=== PATIENT | female | born 1955 | race American Indian/Alaskan Native ===

== ENCOUNTER 2017-04-18 13:19 | Outpatient (CLI) | payer OTHER ==
--- NOTE | 2017-04-18 15:19 | Mammography Report ---
BILATERAL MAMMOGRAM with CAD: HISTORY: Cancer screening. Comparison study is dated December. FINDINGS: The breast tissue is heterogeneously dense, which could obscure detection of small masses (approximately 50%-75% glandular). No mass, distortion, suspicious calcification, or skin change is seen. IMPRESSION: Negative mammogram. There is no mammographic evidence of malignancy. RECOMMENDATION: Follow-up per ACS guidelines. BI-RADS CATEGORY: 1 = Negative ACR BI-RADS MAMMOGRAPHIC CODES: 0 = Needs additional imaging evaluation; 1 = Negative; 2 = Benign; 3 = Probably benign; 4 = Suspicious; 5 = Malignant; 6 = Known biopsy-proven malignancy COMMENT: 1. Dense breast tissue, i.e., adenosis, fibrocystic changes, etc., may obscure an underlying neoplasm. 2. Approximately 10% of cancers are not detected with mammography. 3. A negative mammography report should not delay biopsy if a clinically suspicious mass is present. COMMENT: Patient follow-up letters are generated in [employer].
== END 2017-04-18 13:20 | disposition home or self-care (01) ==
LOC: MAMMO 13:19
PROVIDERS: ATTEND Family Medicine
DX: Z12.31 Encounter for screening mammogram for malignant neoplasm of breast (principal); I10 Essential (primary) hypertension
CPT/HCPCS: 77067; G0202

== ENCOUNTER 2021-09-28 11:26 | Outpatient (CLI) | payer OTHER ==
--- NOTE | 2021-09-28 16:24 | Mammography Report ---
DIGITAL SCREENING MAMMOGRAM WITH CAD, 09/28/2021 CLINICAL INFORMATION / INDICATION: Routine screening mammography. TECHNIQUE: Digital bilateral 2D mammography was obtained in the craniocaudal and mediolateral obliqu e projections. This examination was interpreted with the benefit of Computer-Aided Detection analysis . COMPARISON: 04/18/2017 FINDINGS: Breast Density: The breasts are heterogeneously dense, which may obscure small masses. No dominant mass, suspicious calcifications, or architectural distortion in either breast. No interval change. IMPRESSION: No mammographic evidence of malignancy. Follow up recommendation: Routine yearly BI-RADS Category 1: Negative. A "normal" or negative report should not discourage follow up or biopsy of a clinically significant f inding. A written summary of these findings will be mailed to the patient. The patient will be entered into a mammography reporting system which will generate a reminder letter for the patient's next appointmen t at the appropriate interval. The [employer] recommends yearly mammograms starting at age 40 and continuing as l emigdio as a woman is in good health. Breast MRI is recommended for women with an approximate 20-25% or greater lifetime risk of breast cancer, including women with a strong family history of breast or ova rainer cancer or who have been treated for Hodgkin's disease. Signer Name: Soumya Schmidt MD Signed: 09/28/2021 4:20 PM Workstation Name: [id number]
== END 2021-09-28 11:27 | disposition home or self-care (01) ==
LOC: MAMMO 11:26
PROVIDERS: ATTEND Family Medicine
DX: Z12.31 Encounter for screening mammogram for malignant neoplasm of breast (principal)
CPT/HCPCS: 77067

== ENCOUNTER 2021-10-25 07:49 | Day surgery (SDC) | payer MEDICARE, OTHER ==
[2021-10-17 12:39] LABS: Hematocrit 35.9 % (30.3-42.9); Hemoglobin 11.9 gm/dl (10.1-14.3); Mean Corpuscular HGB Conc 33 % (30-34); Mean Corpuscular Volume 89 fl (79-97); Platelet Count 218 K/mm3 (140-440); Red Blood Count 4.05 M/mm3 (3.65-5.03); Red Cell Distribution Width 13.5 % (13.2-15.2)
[~2021-10-25 07:49] MED LIST: LACTATED RINGERS 1,000 ML IV SCH
[2021-10-25] MEDS ORDERED: BACTERIOSTATIC SODIUM CHLORIDE 0.9% 30 ML VIAL INFILTRATI ONE (08:07)
--- NOTE | 2021-10-25 08:42 | Anesthesia Day of Surgery ---
Anesthesia Day of Surgery - Day of Surgery Patient Examined: Yes Patient H&P Reviewed: Yes Patient is NPO: Yes
--- NOTE | 2021-10-25 08:44 | Anesthesia Consultation ---
Anesthesia Consult and Med Hx Date of service: 10/25/21 - Airway Anesthetic Teeth Evaluation: Chipped ROM Head & Neck: Adequate Mental/Hyoid Distance: Adequate Mallampati Class: Class II Intubation Access Assessment: Good - Pre-Operative Health Status ASA Pre-Surgery Classification: ASA3 Proposed Anesthetic Plan: General - Pulmonary Hx Smoking: No Hx Respiratory Symptoms: No (+2FS) Hx Sleep Apnea: No (SNORES) - Cardiovascular System Hx Hypertension: Yes Hx Heart Attack/AMI: No Hx Heart Murmur: Yes - Central Nervous System CVA: Yes (TIA three years ago) Hx Back Pain: No Hx Psychiatric Problems: No - Gastrointestinal Hx Gastroesophageal Reflux Disease: Yes (occ) - Endocrine Hx Renal Disease: No (SPOT ON RT KIDNEY SINCE 2011-BEING WATCHED BY MORNING SHOW [employer]ER Q6 MONTHS) Hx End Stage Renal Disease: No Hx Liver Disease: Yes ([BENIGN]MASS REMOVED FROM LIVER) Hx Insulin Dependent Diabetes: No - Hematic Hx Anemia: Yes Hx Sickle Cell Disease: Yes (TRAIT) - Other Systems Hx Alcohol Use: No Hx Substance Use: No Hx Cancer: No Hx Obesity: No - Additional Comments Anesthesia Medical History Comments: Has Left shoulder RTC pain
[2021-10-25] MEDS ORDERED: HYDROmorphone 1 MG/1 ML INJ IV PRN ×2 (09:00)
[2021-10-25] MEDS ORDERED: MIDAZOLAM 2 MG/2 ML INJ IV NR (09:00)
[2021-10-25] MEDS ORDERED: ONDANSETRON 4 MG/2 ML INJ IV PRN (09:00)
[2021-10-25] MEDS ORDERED: LIDOCAINE MPF (2%) 20 MG/1 ML VIAL 5 ML ONE (09:10)
[2021-10-25] MEDS ORDERED: propofoL 200 MG/20 ML VIAL IV ONE (09:10)
[2021-10-25] MEDS ORDERED: HYDROmorphone 1 MG/1 ML INJ ONE (09:11)
[2021-10-25] MEDS ORDERED: SILVER NITRATE APPLICATOR 1 EA TP ONE (09:26)
--- NOTE | 2021-10-25 09:29 | Operative Report ---
Operative Report Operative Report: Preoperative: Postmenopausal bleeding Postoperative diagnosis: Same Procedure: Hysteroscopy dilation and curettage Surgeon: Dr. Latoya Jimenez Anesthesia: GETA EBL: Minimal Urine output: None IV fluids:250ml Complications: Findings: Procedure: Patient was counseled in preop holding area about risks benefits possible complications as well as alternatives to the procedure. Informed consent was obtained. She was taken to the OR where she received excellent general endotracheal anesthesia. She was then placed in a dorsal lithotomy position. Exam under anesthesia revealed....... Patient was then prepped and draped in a sterile fashion. A timeout was verified. Patient was straight cathed with a red rubber catheter, with ....... urine obtained. A speculum was placed in the vaginal vault, the cervix was noted to be pink with no lesions. A single-tooth tenaculum was placed on the anterior lip of the cervix and tHe endometrium sounded to ..... The cervix was then dilated to allow for the passage of the hysteroscope. The uterus was hydro-distended, the endometrium was noted to be ........... Sharp curettage was performed with the Kevorkian curette. Endometrial samplings were sent to pathology. At the completion of the procedure the hysteroscope, tenaculum, and speculum were removed from the uterus cervix and vagina respectively. EBL minimal. Patient extubated and taken to the PACU in stable condition. Patient's family notified of stable condition for completion of the procedure. All sponge needle instrument counts correct x2. Patient will follow-up in the outpatient setting in 1 week. Mendel YEPEZ
[2021-10-25] MEDS ORDERED: dexAMETHasone 20 MG/5 ML VIAL ONE (10:16)
[2021-10-25] MEDS ORDERED: ONDANSETRON 4 MG/2 ML INJ ONE (10:17)
[2021-10-25] MEDS ORDERED: KETOROLAC 30 MG/1 ML INJ ONE (10:20)
--- NOTE | 2021-10-25 16:44 | Post Anesthesia Evaluation ---
- Post Anesthesia Evaluation Patient Participated: Yes Airway Patent: Yes Stable Respiratory Function: Yes Nausea/Vomiting: No Temp > 96.8F: Yes Pain Manageable: Yes Adequeate Hydration: Yes Anesthesia Complications: No Block Receding Appropriately: Not Applicable Patient on Ventilator: No
[2021-10-25 17:12] VITALS: BP 167/82
== END 2021-10-25 12:10 | disposition home or self-care (01) ==
LOC: OR 07:49
PROVIDERS: ATTEND Obstetrics & Gynecology
DX: N95.0 Postmenopausal bleeding (principal); Z20.822 Contact with and (suspected) exposure to COVID-19; I10 Essential (primary) hypertension; K21.9 Gastro-esophageal reflux disease without esophagitis; D57.1 Sickle-cell disease without crisis; Z86.73 Personal history of transient ischemic attack (TIA), and cerebral infarction without residual deficits; Z79.899 Other long term (current) drug therapy; Z91.041 Radiographic dye allergy status; Z91.013 Allergy to seafood; Z98.890 Other specified postprocedural states
CPT/HCPCS: 36415; 58558; 85027; 88305; J1100; J1170; J1885; J2250; J2405; J2704; J3490; J7120; U0003

== ENCOUNTER 2021-12-08 11:40 | Inpatient (IN) | payer MEDICARE, OTHER ==
[2021-12-08] MEDS ORDERED: ASPIRIN 325 MG TAB PO ONE (12:11)
[2021-12-08] MEDS ORDERED: NITROGLYCERIN 0.4 MG TAB SUBL SL ONE (12:11)
--- NOTE | 2021-12-08 12:33 | Emergency Department Report ---
ED Chest Pain HPI - General Chief Complaint: Chest Pain Stated Complaint: CHEST PAIN Time Seen by Provider: 12/08/21 12:04 Source: patient Mode of arrival: Ambulatory Limitations: No Limitations - History of Present Illness Initial Comments: Patient presents with chest pain since Sunday. What she describes as a left- sided and substernal chest pain that has been constant since Sunday. The intensity seems to wax and wane, but the presentation does not resolve. She states that this is not been pleuritic. It is not been positional. It has not been exertional. There is no trauma associated with this. It is a sharp and stabbing pain. It is not pressure. It does not feel tight to her. She states she has never had pain like this before. There are no right-sided symptoms. She has no pain or swelling in the legs. [facility] She decided to come here today. - Related Data Home Medications Medication Instructions Recorded Confirmed Last Taken Apap/Acetaphenamin 500 mg PO PRN 10/12/21 10/24/21 Apple Cider Vinegar 450 mg PO DAILY 10/12/21 10/12/21 10/24/21 Centrum [place] 3 1 dose PO DAILY 10/12/21 10/24/21 Multi Víctor 3 1 tab PO DAILY 10/12/21 10/24/21 Valsartan [Diovan] 80 mg PO DAILY 10/12/21 10/12/21 10/24/21 Vitamin B12 1,000 mcg PO DAILY 10/12/21 10/12/21 10/24/21 Vitamin D3 25 mcg PO DAILY 10/12/21 10/12/21 10/24/21 Vitamin Super B 1 tab PO DAILY 10/12/21 10/24/21 Previous Rx's Medication Instructions Recorded Last Taken Type Ibuprofen [Motrin] 600 mg PO Q8H PRN #60 tablet 10/25/21 Unknown Rx Allergies Allergy/AdvReac Type Severity Reaction Status Date / Time iodine AdvReac BLISTERS Verified 10/12/21 13:05 AND SWELLING shellfish derived AdvReac blisters, Verified 04/16/14 10:35 swelling Heart Score - HEART Score History: Slightly suspicious EKG: Significant ST-depression Age: > 65 Risk factors: 1-2 risk factors Troponin: < normal limit HEART Score: 5 - EKG Read Time Time EKG Completed: 11:59 EKG Read Time: 12:05 ED Review of Systems ROS: Stated complaint: CHEST PAIN Other details as noted in HPI Comment: All other systems reviewed and negative Constitutional: denies: fever Eyes: denies: eye pain ENT: denies: throat pain Respiratory: denies: cough Cardiovascular: as per HPI Endocrine: denies: unexplained weight loss Gastrointestinal: denies: abdominal pain Genitourinary: denies: dysuria Musculoskeletal: denies: back pain Skin: denies: rash Neurological: denies: headache Hematological/Lymphatic: denies: easy bruising ED Past Medical Hx - Past Medical History Hx Hypertension: Yes Hx Heart Attack/AMI: No Hx Congestive Heart Failure: No Hx Diabetes: No Hx GERD: Yes (OCC.) Hx Liver Disease: Yes ([BENIGN]MASS REMOVED FROM LIVER) Hx Renal Disease: No (SPOT ON RT KIDNEY SINCE 2011-BEING WATCHED BY [employer] TESTER Q6 MONTHS) Hx Sickle Cell Disease: Yes (TRAIT) Hx Arthritis: Yes (LT SHOULDER) Hx Headaches / Migraines: Yes (MIGRAINES) Hx Kidney Stones: No Hx Tuberculosis: No Hx HIV: No - Surgical History Hx Cholecystectomy: Yes (REMOVED SAME TIME LIVER MASS) - Family History Family history: hypertension - Social History Smoking Status: Never Smoker - Medications Home Medications: Home Medications Medication Instructions Recorded Confirmed Last Taken Type Apap/Acetaphenamin 500 mg PO PRN 10/12/21 10/24/21 History Apple Cider Vinegar 450 mg PO DAILY 10/12/21 10/12/21 10/24/21 History Centrum [place] 3 1 dose PO DAILY 10/12/21 10/24/21 History Multi Víctor 3 1 tab PO DAILY 10/12/21 10/24/21 History Valsartan [Diovan] 80 mg PO DAILY 10/12/21 10/12/21 10/24/21 History Vitamin B12 1,000 mcg PO DAILY 10/12/21 10/12/21 10/24/21 History Vitamin D3 25 mcg PO DAILY 10/12/21 10/12/21 10/24/21 History Vitamin Super B 1 tab PO DAILY 10/12/21 10/24/21 History Ibuprofen [Motrin] 600 mg PO Q8H PRN #60 tablet 10/25/21 Unknown Rx ED Physical Exam - General Limitations: No Limitations, Other (Pulse ox noted and normal) General appearance: alert, in no apparent distress - Head Head exam: Present: atraumatic, normocephalic - Eye Eye exam: Present: normal appearance, EOMI - ENT ENT exam: Present: normal orophraynx, normal external ear exam - Neck Neck exam: Present: normal inspection. Absent: meningismus - Respiratory Respiratory exam: Present: normal lung sounds bilaterally. Absent: respiratory distress - Cardiovascular Cardiovascular Exam: Present: normal rhythm, bradycardia - GI/Abdominal GI/Abdominal exam: Present: soft. Absent: tenderness - Extremities Exam Extremities exam: Present: normal capillary refill. Absent: calf tenderness - Back Exam Back exam: Absent: CVA tenderness (R), CVA tenderness (L) - Neurological Exam Neurological exam: Present: alert, oriented X3, CN II-XII intact, normal gait. Absent: motor sensory deficit - Psychiatric Psychiatric exam: Present: normal affect, normal mood - Skin Skin exam: Present: warm, dry ED Course Vital Signs 12/08/21 12/08/21 11:50 12:41 Temperature 98.3 F Pulse Rate 52 L 58 L Respiratory 16 Rate Blood Pressure 155/71 160/68 O2 Sat by Pulse 99 Oximetry - Reevaluation(s) Reevaluation #1: 12/08/21 12:30 EKG had been noted. IV and labs were ordered. X-ray was ordered. Aspirin and nitrates were given. Old records reviewed. There is no old EKG for comparison. Reevaluation #2: 12/08/21 13:57 Labs and x-ray have been noted. Reevaluation #3: 12/08/21 14:18 Labs have been noted. We will admit the patient. JUJU score - Juju Score Age > 65: (1) Yes Aspirin use within the Past 7 Days: (0) No 3 or more CAD Risk Factors: (0) No 2 or more Angina events in past 24 hrs: (1) Yes Known CAD with more than 50% Stenosis: (0) No Elevated Cardiac Markers: (0) No ST Deviation Greater than 0.5mm: (1) Yes JUJU Score: 3 ED Medical Decision Making - Lab Data Result diagrams: 12/08/21 13:18 12/08/21 13:18 Rhythm strip: Sinus bradycardia without ectopy. Monitor observe 10 seconds. - EKG Data -: EKG Interpreted by Mn - EKG Data 12/08/21 12:31 1159-EKG shows sinus bradycardia at 48. Patient has a normal QRS at 94. QT corrected is normal at 450. There are biphasic T waves in leads I, 2, aVF, V2 through V6. There is no ST elevation noted. There is no old EKG for comparison. - Radiology Data Radiology results: report reviewed - Medical Decision Making Patient present with chest pain and an abnormal EKG. Heart score is sufficiently elevated that she would benefit from admission. There is no evidence of STEMI. There is no old EKG for comparison. She does not have radiographic evidence of pneumonia or pneumothorax. She does not have a pulse deficit to suggest aortic dissection. Critical Care Time: No Critical care attestation.: If time is entered above; I have spent that time in minutes in the direct care of this critically ill patient, excluding procedure time. ED Disposition Clinical Impression: Left-sided chest pain, Abnormal EKG Disposition: ADMITTED INPATIENT Is pt being admited?: No Condition: Stable Instructions: Nonspecific Chest Pain, Adult Referrals: PRIMARY CARE, [Primary Care Provider] - 3-5 Days
--- NOTE | 2021-12-08 12:58 | XRay Report ---
CHEST 2 VIEWS INDICATION: cp X 4 DAYS. COMPARISON: none FINDINGS: Support devices: None. Heart: Within normal limits. Lungs/pleura: No acute air space or interstitial disease. No pneumothorax. Additional findings: None. IMPRESSION: No acute findings. Signer Name: Simth Solares Jr, MD Signed: 12/08/2021 12:53 PM Workstation Name: [id number]
[2021-12-08 13:36] LABS: Eosinophils # (Auto) 0.1 K/mm3 (0.0-0.4); Eosinophils % (Auto) 2.2 % (0.0-4.3); Hematocrit 35.4 % (30.3-42.9); Hemoglobin 11.5 gm/dl (10.1-14.3); Lymphocytes % (Auto) 42.5 % (13.4-35.0); Mean Corpuscular HGB Conc 32 % (30-34); Mean Corpuscular Volume 89 fl (79-97); Monocytes # (Auto) 0.3 K/mm3 (0.0-0.8); Monocytes % (Auto) 5.6 % (0.0-7.3); Platelet Count 236 K/mm3 (140-440); Red Blood Count 3.98 M/mm3 (3.65-5.03)
[2021-12-08 13:49] LABS: BUN/Creatinine Ratio 11; Blood Urea Nitrogen 11 mg/dL (7-17); Calcium 9.5 mg/dL (8.4-10.2); Hemolysis Index 9
[2021-12-08] MEDS ORDERED: MORPHINE 4 MG/1 ML INJ IV ONE (16:30)
[2021-12-08] MEDS ORDERED: MORPHINE 4 MG/1 ML INJ ONE (16:32)
[2021-12-08] MEDS ORDERED: ACETAMINOPHEN 325 MG TAB PO PRN (22:33)
[2021-12-08] MEDS ORDERED: ONDANSETRON 4 MG/2 ML INJ IV PRN (22:36)
[2021-12-09] MEDS ORDERED: ACETAMINOPHEN 325 MG TAB PO PRN (02:43)
[2021-12-09] MEDS ORDERED: HYDROmorphone 1 MG/1 ML INJ IV PRN (02:43)
[2021-12-09] MEDS ORDERED: ONDANSETRON 4 MG/2 ML INJ IV PRN (02:43)
[2021-12-09] MEDS ORDERED: MORPHINE 2 MG/1 ML INJ IV PRN (02:43)
--- NOTE | 2021-12-09 02:43 | History and Physical Report ---
History of Present Illness Date of admission: 12/08/21 14:47 Medications and Allergies Allergies Allergy/AdvReac Type Severity Reaction Status Date / Time iodine AdvReac BLISTERS Verified 10/12/21 13:05 AND SWELLING shellfish derived AdvReac blisters, Verified 04/16/14 10:35 swelling Home Medications Medication Instructions Recorded Confirmed Last Taken Type Apap/Acetaphenamin 500 mg PO PRN 10/12/21 10/24/21 History Apple Cider Vinegar 450 mg PO DAILY 10/12/21 10/12/21 10/24/21 History Centrum [place] 3 1 dose PO DAILY 10/12/21 10/24/21 History Multi Víctor 3 1 tab PO DAILY 10/12/21 10/24/21 History Valsartan [Diovan] 80 mg PO DAILY 10/12/21 10/12/21 10/24/21 History Vitamin B12 1,000 mcg PO DAILY 10/12/21 10/12/21 10/24/21 History Vitamin D3 25 mcg PO DAILY 10/12/21 10/12/21 10/24/21 History Vitamin Super B 1 tab PO DAILY 10/12/21 10/24/21 History Ibuprofen [Motrin] 600 mg PO Q8H PRN #60 tablet 10/25/21 Unknown Rx Active Meds: Active Medications Acetaminophen (Acetaminophen 325 Mg Tab) 650 mg PO Q6H PRN PRN Reason: Pain, Mild (1-3) Last Admin: 12/08/21 22:49 Dose: 650 mg Ondansetron HCl (Ondansetron 4 Mg/2 Ml Inj) 4 mg IV Q4H PRN PRN Reason: Nausea And Vomiting Last Admin: 12/08/21 22:50 Dose: 4 mg Exam - Constitutional Vitals: Temp Pulse Resp BP Pulse Ox 98.3 F 58 L 16 160/68 99 12/08/21 11:50 12/08/21 12:41 12/08/21 16:42 12/08/21 12:41 12/08/21 11:50 HEART Score - HEART Score EKG: Significant ST-depression Age: > 65 Risk factors: 1-2 risk factors Troponin: Troponin T < 0.010 ng/mL (0.00-0.029) 12/08/21 13:18 Troponin: < normal limit Results - Labs CBC & Chem 7: 12/08/21 13:18 12/08/21 13:18 Labs: Laboratory Last Values WBC 4.8 K/mm3 (4.5-11.0) 12/08/21 13:18 RBC 3.98 M/mm3 (3.65-5.03) 12/08/21 13:18 Hgb 11.5 gm/dl (10.1-14.3) 12/08/21 13:18 Hct 35.4 % (30.3-42.9) 12/08/21 13:18 MCV 89 fl (79-97) 12/08/21 13:18 MCH 29 pg (28-32) 12/08/21 13:18 MCHC 32 % (30-34) 12/08/21 13:18 RDW 14.0 % (13.2-15.2) 12/08/21 13:18 Plt Count 236 K/mm3 (140-440) 12/08/21 13:18 Lymph % (Auto) 42.5 % (13.4-35.0) H 12/08/21 13:18 [place] % (Auto) 5.6 % (0.0-7.3) 12/08/21 13:18 Eos % (Auto) 2.2 % (0.0-4.3) 12/08/21 13:18 Baso % (Auto) 1.0 % (0.0-1.8) 12/08/21 13:18 Lymph # (Auto) 2.0 K/mm3 (1.2-5.4) 12/08/21 13:18 [place] # (Auto) 0.3 K/mm3 (0.0-0.8) 12/08/21 13:18 Eos # (Auto) 0.1 K/mm3 (0.0-0.4) 12/08/21 13:18 Baso # (Auto) 0.0 K/mm3 (0.0-0.1) 12/08/21 13:18 Seg Neutrophils % 48.7 % (40.0-70.0) 12/08/21 13:18 Seg Neutrophils # 2.3 K/mm3 (1.8-7.7) 12/08/21 13:18 Sodium 146 mmol/L (137-145) H 12/08/21 13:18 Potassium 4.3 mmol/L (3.6-5.0) 12/08/21 13:18 Chloride 109.0 mmol/L (98-107) H 12/08/21 13:18 Carbon Dioxide 25 mmol/L (22-30) 12/08/21 13:18 Anion Gap 16 mmol/L 12/08/21 13:18 BUN 11 mg/dL (7-17) 12/08/21 13:18 Creatinine 1.0 mg/dL (0.6-1.2) 12/08/21 13:18 Estimated GFR > 60 ml/min 12/08/21 13:18 BUN/Creatinine Ratio 11 % 12/08/21 13:18 Glucose 107 mg/dL (65-100) H 12/08/21 13:18 Calcium 9.5 mg/dL (8.4-10.2) 12/08/21 13:18 Troponin T < 0.010 ng/mL (0.00-0.029) 12/08/21 13:18
[2021-12-09] MEDS ORDERED: IBUPROFEN 600 MG TAB PO PRN (02:45)
[2021-12-09] MEDS ORDERED: SODIUM CHLORIDE 0.9% 1000 ML 1,000 ML IV SCH (02:45)
[2021-12-09] MEDS: FAMOTIDINE 20 MG/2 ML INJ IV SCH ×3 (03:36→22:54)
--- NOTE | 2021-12-09 07:29 | History and Physical Report ---
History of Present Illness Date of examination: 12/08/21 Date of admission: 12/09/21 02:43 Chief complaint: Chest pain for 1 day History of present illness: 65-year-old female with history of presents with left-sided chest pain since Sunday which was 5 days ago. Chest pain is retrosternal in reported. No radiation. Diaphoresis. Not positional. No chest wall tenderness patient presents after [facility] a cardiac [facility] could not and came to the emergency room here. No cardiac history in the past except for hypertension. No cardiac interventions in the past - Past Medical History --Hypertension: Yes --GERD: Yes (OCC.) --Liver Disease: Yes ([BENIGN]MASS REMOVED FROM LIVER) --Sickle Cell Disease: Yes (TRAIT) --Arthritis: Yes (LT SHOULDER) --Headaches / Migraines: Yes (MIGRAINES) - Surgical History --Cholecystectomy: Yes (REMOVED SAME TIME LIVER MASS) - Family History --Family history: hypertension - Social History --Smoking Status: Never Smoker - Medications Home Medications: Home Medications Medication Instructions Recorded Confirmed Last Taken Type Apap/Acetaphenamin 500 mg PO PRN 10/12/21 10/24/21 History Apple Cider Vinegar 450 mg PO DAILY 10/12/21 10/12/21 10/24/21 History Centrum [place] 3 1 dose PO DAILY 10/12/21 10/24/21 History Multi Víctor 3 1 tab PO DAILY 10/12/21 10/24/21 History Valsartan [Diovan] 80 mg PO DAILY 10/12/21 10/12/21 10/24/21 History Vitamin B12 1,000 mcg PO DAILY 10/12/21 10/12/21 10/24/21 History Vitamin D3 25 mcg PO DAILY 10/12/21 10/12/21 10/24/21 History Vitamin Super B 1 tab PO DAILY 10/12/21 10/24/21 History Ibuprofen [Motrin] 600 mg PO Q8H PRN #60 tablet 10/25/21 Unknown Rx Review of Systems ROS: Stated complaint: CHEST PAIN Other details as noted in HPI Comment: All other systems reviewed and negative Constitutional: denies: fever Eyes: denies: eye pain ENT: denies: throat pain Respiratory: denies: cough Cardiovascular: as per HPI Endocrine: denies: unexplained weight loss Gastrointestinal: denies: abdominal pain Genitourinary: denies: dysuria Musculoskeletal: denies: back pain Skin: denies: rash Neurological: denies: headache Hematological/Lymphatic: denies: easy bruising Medications and Allergies Allergies Allergy/AdvReac Type Severity Reaction Status Date / Time iodine AdvReac BLISTERS Verified 10/12/21 13:05 AND SWELLING shellfish derived AdvReac blisters, Verified 04/16/14 10:35 swelling Home Medications Medication Instructions Recorded Confirmed Last Taken Type Apap/Acetaphenamin 500 mg PO PRN 10/12/21 10/24/21 History Apple Cider Vinegar 450 mg PO DAILY 10/12/21 10/12/21 10/24/21 History Centrum [place] 3 1 dose PO DAILY 10/12/21 10/24/21 History Multi Víctor 3 1 tab PO DAILY 10/12/21 10/24/21 History Valsartan [Diovan] 80 mg PO DAILY 10/12/21 10/12/21 10/24/21 History Vitamin B12 1,000 mcg PO DAILY 10/12/21 10/12/21 10/24/21 History Vitamin D3 25 mcg PO DAILY 10/12/21 10/12/21 10/24/21 History Vitamin Super B 1 tab PO DAILY 10/12/21 10/24/21 History Ibuprofen [Motrin] 600 mg PO Q8H PRN #60 tablet 10/25/21 Unknown Rx Active Meds: Active Medications Acetaminophen (Acetaminophen 325 Mg Tab) 650 mg PO Q4H PRN PRN Reason: Pain MILD(1-3)/Fever >100.5/GARCIA Cyanocobalamin (Cyanocobalamin (Vit B-12) 1000 Mcg Tab) 1,000 mcg PO DAILY [facility] Famotidine (Famotidine 20 Mg/2 Ml Inj) 20 mg IV BID [facility] Last Admin: 12/09/21 03:36 Dose: 20 mg Hydromorphone HCl (Hydromorphone 1 Mg/1 Ml Inj) 0.5 mg IV Q3H PRN PRN Reason: Pain , Severe (7-10) Sodium Chloride (Nacl 0.9% 1000 Ml) 1,000 mls @ 75 mls/hr IV DIRECT [facility] Ibuprofen (Ibuprofen 600 Mg Tab) 600 mg PO Q8H PRN PRN Reason: Pain, Mild (1-3) Morphine Sulfate (Morphine 2 Mg/1 Ml Inj) 2 mg IV Q4H PRN PRN Reason: Pain, Moderate (4-6) Ondansetron HCl (Ondansetron 4 Mg/2 Ml Inj) 4 mg IV Q8H PRN PRN Reason: Nausea And Vomiting Sodium Chloride (Sodium Chloride 0.9% 10 Ml Flush Syringe) 10 ml IV BID [facility] Last Admin: 12/09/21 03:37 Dose: 10 ml Sodium Chloride (Sodium Chloride 0.9% 10 Ml Flush Syringe) 10 ml IV PRN PRN PRN Reason: LINE FLUSH Valsartan (Valsartan 40 Mg Tab) 80 mg PO DAILY [facility] Vitamin B Complex/Vitamin C (B Complex W/Vitamin C Tab) 1 each PO DAILY [facility] Exam - Constitutional Vitals: Temp Pulse Resp BP Pulse Ox 98.3 F 51 L 17 114/56 97 12/08/21 11:50 12/09/21 06:55 12/09/21 06:55 12/09/21 06:55 12/09/21 06:55 General appearance: Present: no acute distress, well-nourished - EENT Eyes: Present: PERRL ENT: hearing intact, clear oral mucosa - Neck Neck: Present: supple, normal ROM - Respiratory Respiratory effort: normal Respiratory: bilateral: CTA - Cardiovascular Heart rate: 78 Rhythm: regular Heart Sounds: Present: S1 & S2. Absent: rub, click - Extremities Extremities: pulses symmetrical, No edema Peripheral Pulses: within normal limits - Abdominal General gastrointestinal: Present: soft, non-tender, non-distended, normal bowel sounds Female genitourinary: Present: normal - Integumentary Integumentary: Present: clear, warm, dry - Musculoskeletal Musculoskeletal: gait normal, strength equal bilaterally - Psychiatric Psychiatric: appropriate mood/affect, intact judgment & insight - Neurologic Neurologic: CNII-XII intact, moves all extremities HEART Score - HEART Score EKG: Significant ST-depression Age: > 65 Risk factors: 1-2 risk factors Troponin: Troponin T < 0.010 ng/mL (0.00-0.029) 12/09/21 03:53 Troponin: < normal limit Results - Labs CBC & Chem 7: 12/08/21 13:18 12/08/21 13:18 Labs: Laboratory Last Values WBC 4.8 K/mm3 (4.5-11.0) 12/08/21 13:18 RBC 3.98 M/mm3 (3.65-5.03) 12/08/21 13:18 Hgb 11.5 gm/dl (10.1-14.3) 12/08/21 13:18 Hct 35.4 % (30.3-42.9) 12/08/21 13:18 MCV 89 fl (79-97) 12/08/21 13:18 MCH 29 pg (28-32) 12/08/21 13:18 MCHC 32 % (30-34) 12/08/21 13:18 RDW 14.0 % (13.2-15.2) 12/08/21 13:18 Plt Count 236 K/mm3 (140-440) 12/08/21 13:18 Lymph % (Auto) 42.5 % (13.4-35.0) H 12/08/21 13:18 [place] % (Auto) 5.6 % (0.0-7.3) 12/08/21 13:18 Eos % (Auto) 2.2 % (0.0-4.3) 12/08/21 13:18 Baso % (Auto) 1.0 % (0.0-1.8) 12/08/21 13:18 Lymph # (Auto) 2.0 K/mm3 (1.2-5.4) 12/08/21 13:18 [place] # (Auto) 0.3 K/mm3 (0.0-0.8) 12/08/21 13:18 Eos # (Auto) 0.1 K/mm3 (0.0-0.4) 12/08/21 13:18 Baso # (Auto) 0.0 K/mm3 (0.0-0.1) 12/08/21 13:18 Seg Neutrophils % 48.7 % (40.0-70.0) 12/08/21 13:18 Seg Neutrophils # 2.3 K/mm3 (1.8-7.7) 12/08/21 13:18 Sodium 146 mmol/L (137-145) H 12/08/21 13:18 Potassium 4.3 mmol/L (3.6-5.0) 12/08/21 13:18 Chloride 109.0 mmol/L (98-107) H 12/08/21 13:18 Carbon Dioxide 25 mmol/L (22-30) 12/08/21 13:18 Anion Gap 16 mmol/L 12/08/21 13:18 BUN 11 mg/dL (7-17) 12/08/21 13:18 Creatinine 1.0 mg/dL (0.6-1.2) 12/08/21 13:18 Estimated GFR > 60 ml/min 12/08/21 13:18 BUN/Creatinine Ratio 11 % 12/08/21 13:18 Glucose 107 mg/dL (65-100) H 12/08/21 13:18 Calcium 9.5 mg/dL (8.4-10.2) 12/08/21 13:18 Troponin T < 0.010 ng/mL (0.00-0.029) 12/09/21 03:53 - Imaging and Cardiology EKG: report reviewed (Sinus rhythm no acute ST-T wave changes) Assessment and Plan Advance Directives: Yes (Full code) VTE prophylaxis?: Chemical Plan of care discussed with patient/family: Yes - Patient Problems (1) Acute coronary syndrome Current Visit: Yes Status: Acute Plan to address problem: Chest pain work-up Troponins serially Lexiscan in the morning No cardiology consult requested (2) Hypertension Current Visit: Yes Status: Chronic Qualifiers: Hypertension type: primary hypertension Qualified Code(s): I10 - Essential (primary) hypertension Plan to address problem: Continue antihypertensives and adjust medications Patient is on valsartan (3) Hypernatremia Current Visit: Yes Status: Acute Plan to address problem: Mild Half-normal saline for now (4) DVT prophylaxis Current Visit: Yes Status: Acute Plan to address problem: On anticoagulation GI prophylaxis (5) Advance care planning Current Visit: Yes Status: Acute Plan to address problem: Disease education collected, care plan discussed, diagnosis discussed, prognosis discussed. Patient is full code. Patient acknowledges understanding and agre ement with care plan. +30 minutes.
[2021-12-09] MEDS ORDERED: REGADENOSON 0.4 MG/5 ML INJ IV ONE (08:00)
--- NOTE | 2021-12-09 08:36 | Progress Note ---
Assessment and Plan Assessment and plan: --Acute coronary syndrome Current Visit: Yes Status: Acute Chest pain work-up Troponins serially Patient underwent a Lexiscan stress test Pending report -- Hypertension Current Visit: Yes Status: Chronic Continue antihypertensives and adjust medications Patient is on valsartan --Dyslipidemia; Low-dose statin Low-cholesterol diet --Hypernatremia Current Visit: Yes Status: Acute Mild Half-normal saline for now -- DVT prophylaxis Current Visit: Yes Status: Acute On anticoagulation GI prophylaxis -- Advance care planning Current Visit: Yes Status: Acute Disease education collected, care plan discussed, diagnosis discussed, prognosis discussed. Patient is full code. Patient acknowledges understanding and agreement with care plan. +30 minutes. We will closely monitor patient and adjust the management as needed Plan of care reviewed with the patient and her nurse Lexiscan stress test report is still pending We will monitor the patient overnight Possible discharge tomorrow if stable Prolonged care 35 minutes History Interval history: Patient is scheduled for stress test today Patient feels better no new episodes of chest pain Serial cardiac enzymes negative Hospitalist Physical - Constitutional Vitals: Temp Pulse Resp BP Pulse Ox 98.3 F 51 L 17 132/68 97 12/08/21 11:50 12/09/21 06:55 12/09/21 06:55 12/09/21 08:19 12/09/21 06:55 General appearance: Present: no acute distress, well-nourished - EENT Eyes: Present: PERRL, EOM intact - Neck Neck: Present: supple, normal ROM - Respiratory Respiratory effort: normal Respiratory: bilateral: diminished, negative: rales, rhonchi, wheezing - Cardiovascular Rhythm: regular Heart Sounds: Present: S1 & S2 - Extremities Extremities: no ischemia, No edema - Abdominal General gastrointestinal: soft, non-tender, non-distended, normal bowel sounds - Integumentary Integumentary: Present: clear, warm - Psychiatric Psychiatric: appropriate mood/affect, cooperative - Neurologic Neurologic: CNII-XII intact, moves all extremities HEART Score - HEART Score EKG: Significant ST-depression Age: > 65 Risk factors: 1-2 risk factors Troponin: Troponin T < 0.010 ng/mL (0.00-0.029) 12/09/21 03:53 Troponin: < normal limit Results - Labs CBC & Chem 7: 12/08/21 13:18 12/08/21 13:18 Labs: Laboratory Last Values WBC 4.8 K/mm3 (4.5-11.0) 12/08/21 13:18 RBC 3.98 M/mm3 (3.65-5.03) 12/08/21 13:18 Hgb 11.5 gm/dl (10.1-14.3) 12/08/21 13:18 Hct 35.4 % (30.3-42.9) 12/08/21 13:18 MCV 89 fl (79-97) 12/08/21 13:18 MCH 29 pg (28-32) 12/08/21 13:18 MCHC 32 % (30-34) 12/08/21 13:18 RDW 14.0 % (13.2-15.2) 12/08/21 13:18 Plt Count 236 K/mm3 (140-440) 12/08/21 13:18 Lymph % (Auto) 42.5 % (13.4-35.0) H 12/08/21 13:18 [place] % (Auto) 5.6 % (0.0-7.3) 12/08/21 13:18 Eos % (Auto) 2.2 % (0.0-4.3) 12/08/21 13:18 Baso % (Auto) 1.0 % (0.0-1.8) 12/08/21 13:18 Lymph # (Auto) 2.0 K/mm3 (1.2-5.4) 12/08/21 13:18 [place] # (Auto) 0.3 K/mm3 (0.0-0.8) 12/08/21 13:18 Eos # (Auto) 0.1 K/mm3 (0.0-0.4) 12/08/21 13:18 Baso # (Auto) 0.0 K/mm3 (0.0-0.1) 12/08/21 13:18 Seg Neutrophils % 48.7 % (40.0-70.0) 12/08/21 13:18 Seg Neutrophils # 2.3 K/mm3 (1.8-7.7) 12/08/21 13:18 Sodium 146 mmol/L (137-145) H 12/08/21 13:18 Potassium 4.3 mmol/L (3.6-5.0) 12/08/21 13:18 Chloride 109.0 mmol/L (98-107) H 12/08/21 13:18 Carbon Dioxide 25 mmol/L (22-30) 12/08/21 13:18 Anion Gap 16 mmol/L 12/08/21 13:18 BUN 11 mg/dL (7-17) 12/08/21 13:18 Creatinine 1.0 mg/dL (0.6-1.2) 12/08/21 13:18 Estimated GFR > 60 ml/min 12/08/21 13:18 BUN/Creatinine Ratio 11 % 12/08/21 13:18 Glucose 107 mg/dL (65-100) H 12/08/21 13:18 Calcium 9.5 mg/dL (8.4-10.2) 12/08/21 13:18 Troponin T < 0.010 ng/mL (0.00-0.029) 12/09/21 03:53 Active Medications - Current Medications Current Medications: Generic Name Dose Route Start Last Admin Trade Name Freq PRN Reason Stop Dose Admin Acetaminophen 650 mg 12/09/21 02:43 Acetaminophen 325 Mg Tab PO Q4H PRN Pain MILD(1-3)/Fever >100.5/GARCIA Cyanocobalamin 1,000 mcg 12/09/21 10:00 Cyanocobalamin (Vit B-12) 1000 Mcg Tab PO DAILY [facility] Famotidine 20 mg 12/09/21 03:00 12/09/21 03:36 Famotidine 20 Mg/2 Ml Inj IV 20 mg BID [facility] Administration Hydromorphone HCl 0.5 mg 12/09/21 02:43 Hydromorphone 1 Mg/1 Ml Inj IV Q3H PRN Pain , Severe (7-10) Sodium Chloride 1,000 mls @ 75 mls/hr 12/09/21 02:45 Nacl 0.9% 1000 Ml IV DIRECT [facility] Ibuprofen 600 mg 12/09/21 02:45 Ibuprofen 600 Mg Tab PO Q8H PRN Pain, Mild (1-3) Morphine Sulfate 2 mg 12/09/21 02:43 Morphine 2 Mg/1 Ml Inj IV Q4H PRN Pain, Moderate (4-6) Ondansetron HCl 4 mg 12/09/21 02:43 Ondansetron 4 Mg/2 Ml Inj IV Q8H PRN Nausea And Vomiting Sodium Chloride 10 ml 12/09/21 03:00 12/09/21 03:37 Sodium Chloride 0.9% 10 Ml Flush Syringe IV 10 ml BID [facility] Administration Sodium Chloride 10 ml 12/09/21 02:43 Sodium Chloride 0.9% 10 Ml Flush Syringe IV PRN PRN LINE FLUSH Valsartan 80 mg 12/09/21 10:00 Valsartan 40 Mg Tab PO DAILY [facility] Vitamin B Complex/Vitamin C 1 each 12/09/21 10:00 B Complex W/Vitamin C Tab PO DAILY [facility]
[2021-12-09] MEDS ORDERED: NON-FORMULARY EACH (Valsartan [Diovan] 80 MG Tablet) PO SCH (10:00)
[2021-12-09] MEDS ORDERED: [UNRECOGNIZED DRUG - OTHER] PO SCH (10:00)
[2021-12-09] MEDS ORDERED: VITAMIN B12 1000 MCG PO SCH (10:00)
[2021-12-09 10:29] LABS: Chol/HDL Ratio 2.61 %
--- NOTE | 2021-12-09 11:06 | Electrocardiograph Report ---
[facility] Test Date: 2021-12-08 Test Time: 11:59:46 Pat Name: ZULEYKA THAKKAR Department: Room: [place] [address] Gender: F Window Assembler: MARISSA : 1955 Requested By: ALESHIA STANLEY Order Number: [id number] Reading MD: Felipe Arteaga Measurements Intervals [place] Rate: 48 P: 61 VA: 152 QRS: 46 QRSD: 94 T: 171 QT: 500 QTc: 450 Interpretive Statements Sinus bradycardia Abnormal T, consider ischemia, diffuse leads No previous ECG available for comparison Electronically Signed On 12-09-2021 11:05:46 EST by Felipe Arteaga
[2021-12-09] MEDS: CYANOCOBALAMIN (VIT B-12) 1000 MCG TAB PO SCH (12:14)
[2021-12-09] MEDS: VALSARTAN 40 MG TAB PO SCH (12:14)
[2021-12-09] MEDS: B COMPLEX W/VITAMIN C TAB PO SCH (12:14)
--- NOTE | 2021-12-09 16:27 | Event Note ---
Date: 12/09/21 Ms. Bailon informed that stress lab informed that balloon tester Dr. Trejo from [facility] to read the report, limited study Looks normal but the report cannot be uploaded today due to technical reasons. We will continue to monitor the patient overnight, and check with balloon tester/stress lab personnel about the results of the stress test Continue current management. I discussed with the patient over the phone and I discussed with patient's nurse Mr. Kebede Both of them verbalized understanding. We will observe the patient closely overnight
[2021-12-10 08:51] VITALS: BP 132/71
[2021-12-10] MEDS: CYANOCOBALAMIN (VIT B-12) 1000 MCG TAB PO SCH (11:33)
[2021-12-10] MEDS: FAMOTIDINE 20 MG/2 ML INJ IV SCH (11:33)
[2021-12-10] MEDS: VALSARTAN 40 MG TAB PO SCH (11:33)
[2021-12-10] MEDS: B COMPLEX W/VITAMIN C TAB PO SCH (11:33)
--- NOTE | 2021-12-10 11:46 | Progress Note ---
Assessment and Plan Assessment and plan: --Bradycardia; asymptomatic Patient is not on any AV christina blockers Check thyroid panel, Has abnormal EKG Consult cardiology[informed Dr.R. Cano [place] heart --Acute coronary syndrome Current Visit: Yes Status: Acute Chest pain work-up Serial troponins negative Patient underwent a Lexiscan stress test Pending report -- Hypertension Current Visit: Yes Status: Chronic Continue antihypertensives and adjust medications Patient is on valsartan --Dyslipidemia; Low-dose statin, Low-cholesterol diet --Hypernatremia Current Visit: Yes Status: Acute Mild Half-normal saline for now -- DVT prophylaxis Current Visit: Yes Status: Acute On anticoagulation GI prophylaxis -- Advance care planning Current Visit: Yes Status: Acute Disease education collected, care plan discussed, diagnosis discussed, prognosis discussed. Patient is full code. Patient acknowledges understanding and agreement with care plan. +30 minutes. We will closely monitor patient and adjust the management as needed Plan of care reviewed with the patient and her nurse Lexiscan stress test report is still pending Follow cardiology consult and recommendations Follow-up thyroid panel. History Interval history: Patient was admitted with chest pain Serial cardiac enzymes negative EKG bradycardia and nonspecific T wave changes Had stress test yesterday, pending report Vital signs reviewed Hospitalist Physical - Constitutional Vitals: Temp Pulse Resp BP Pulse Ox 98.1 F 52 L 20 132/71 99 12/10/21 07:59 12/10/21 07:59 12/10/21 07:59 12/10/21 07:59 12/10/21 08:59 General appearance: Present: no acute distress, well-nourished - EENT Eyes: Present: PERRL, EOM intact - Neck Neck: Present: supple, normal ROM - Respiratory Respiratory effort: normal Respiratory: bilateral: diminished, negative: rales, rhonchi, wheezing - Cardiovascular Rhythm: regular Heart Sounds: Present: S1 & S2 (Bradycardia) - Extremities Extremities: no ischemia, No edema - Abdominal General gastrointestinal: soft, non-tender, non-distended, normal bowel sounds - Integumentary Integumentary: Present: clear, warm - Psychiatric Psychiatric: appropriate mood/affect, cooperative - Neurologic Neurologic: moves all extremities HEART Score - HEART Score EKG: Significant ST-depression Age: > 65 Risk factors: 1-2 risk factors Troponin: Troponin T < 0.010 ng/mL (0.00-0.029) 12/09/21 23:40 Troponin: < normal limit Results - Labs CBC & Chem 7: 12/08/21 13:18 12/08/21 13:18 Labs: Laboratory Last Values WBC 4.8 K/mm3 (4.5-11.0) 12/08/21 13:18 RBC 3.98 M/mm3 (3.65-5.03) 12/08/21 13:18 Hgb 11.5 gm/dl (10.1-14.3) 12/08/21 13:18 Hct 35.4 % (30.3-42.9) 12/08/21 13:18 MCV 89 fl (79-97) 12/08/21 13:18 MCH 29 pg (28-32) 12/08/21 13:18 MCHC 32 % (30-34) 12/08/21 13:18 RDW 14.0 % (13.2-15.2) 12/08/21 13:18 Plt Count 236 K/mm3 (140-440) 12/08/21 13:18 Lymph % (Auto) 42.5 % (13.4-35.0) H 12/08/21 13:18 [place] % (Auto) 5.6 % (0.0-7.3) 12/08/21 13:18 Eos % (Auto) 2.2 % (0.0-4.3) 12/08/21 13:18 Baso % (Auto) 1.0 % (0.0-1.8) 12/08/21 13:18 Lymph # (Auto) 2.0 K/mm3 (1.2-5.4) 12/08/21 13:18 [place] # (Auto) 0.3 K/mm3 (0.0-0.8) 12/08/21 13:18 Eos # (Auto) 0.1 K/mm3 (0.0-0.4) 12/08/21 13:18 Baso # (Auto) 0.0 K/mm3 (0.0-0.1) 12/08/21 13:18 Seg Neutrophils % 48.7 % (40.0-70.0) 12/08/21 13:18 Seg Neutrophils # 2.3 K/mm3 (1.8-7.7) 12/08/21 13:18 Sodium 146 mmol/L (137-145) H 12/08/21 13:18 Potassium 4.3 mmol/L (3.6-5.0) 12/08/21 13:18 Chloride 109.0 mmol/L (98-107) H 12/08/21 13:18 Carbon Dioxide 25 mmol/L (22-30) 12/08/21 13:18 Anion Gap 16 mmol/L 12/08/21 13:18 BUN 11 mg/dL (7-17) 12/08/21 13:18 Creatinine 1.0 mg/dL (0.6-1.2) 12/08/21 13:18 Estimated GFR > 60 ml/min 12/08/21 13:18 BUN/Creatinine Ratio 11 % 12/08/21 13:18 Glucose 107 mg/dL (65-100) H 12/08/21 13:18 Calcium 9.5 mg/dL (8.4-10.2) 12/08/21 13:18 Troponin T < 0.010 ng/mL (0.00-0.029) 12/09/21 23:40 Triglycerides 42 mg/dL (2-149) 12/09/21 09:07 Cholesterol 199 mg/dL (50-199) 12/09/21 09:07 LDL Cholesterol Direct 128 mg/dL (50-130) 12/09/21 09:07 HDL Cholesterol 76 mg/dL (40-59) H 12/09/21 09:07 Cholesterol/HDL Ratio 2.61 % 12/09/21 09:07 [place]/IV: Voiding Method Toilet Active Medications - Current Medications Current Medications: Generic Name Dose Route Start Last Admin Trade Name Freq PRN Reason Stop Dose Admin Acetaminophen 650 mg 12/09/21 02:43 12/09/21 17:59 Acetaminophen 325 Mg Tab PO 650 mg Q4H PRN Administration Pain MILD(1-3)/Fever >100.5/GARCIA Cyanocobalamin 1,000 mcg 12/09/21 10:00 12/10/21 11:33 Cyanocobalamin (Vit B-12) 1000 Mcg Tab PO 1,000 mcg DAILY [facility] Administration Famotidine 20 mg 12/09/21 03:00 12/10/21 11:33 Famotidine 20 Mg/2 Ml Inj IV 20 mg BID [facility] Administration Hydromorphone HCl 0.5 mg 12/09/21 02:43 Hydromorphone 1 Mg/1 Ml Inj IV Q3H PRN Pain , Severe (7-10) Sodium Chloride 1,000 mls @ 75 mls/hr 12/09/21 02:45 Nacl 0.9% 1000 Ml IV DIRECT [facility] Ibuprofen 600 mg 12/09/21 02:45 Ibuprofen 600 Mg Tab PO Q8H PRN Pain, Mild (1-3) Morphine Sulfate 2 mg 12/09/21 02:43 12/10/21 11:36 Morphine 2 Mg/1 Ml Inj IV 2 mg Q4H PRN Administration Pain, Moderate (4-6) Ondansetron HCl 4 mg 12/09/21 02:43 Ondansetron 4 Mg/2 Ml Inj IV Q8H PRN Nausea And Vomiting Sodium Chloride 10 ml 12/09/21 03:00 12/10/21 11:33 Sodium Chloride 0.9% 10 Ml Flush Syringe IV 10 ml BID [facility] Administration Sodium Chloride 10 ml 12/09/21 02:43 Sodium Chloride 0.9% 10 Ml Flush Syringe IV PRN PRN LINE FLUSH Valsartan 80 mg 12/09/21 10:00 12/10/21 11:33 Valsartan 40 Mg Tab PO 80 mg DAILY [facility] Administration Vitamin B Complex/Vitamin C 1 each 12/09/21 10:00 12/10/21 11:33 B Complex W/Vitamin C Tab PO 1 each DAILY [facility] Administration
--- NOTE | 2021-12-10 12:13 | Consultation ---
History of Present Illness Consult date: 12/10/21 Requesting physician: ALESHIA STANLEY Consult reason: chest pain History of present illness: Patient is a 65-year old with a history of hypertension who presented to the hospital complaining of chest pain. She reports that she has been having on and off sharp needle like pain under her left breast. This happens only while she is at rest. There is no symptoms when she exerts herself. Since being in the hospital she reports her symptoms are significantly improved. No associated shortness of breath. No associated diaphoresis. No radiation of the pain. No prior cardiac work-up. So far except for an abnormal EKG cardiac work-up has been negative including a stress test. Past History Past Medical History: No medical history, hypertension Social history: no significant social history Family history: no significant family history Medications and Allergies Allergies Allergy/AdvReac Type Severity Reaction Status Date / Time iodine AdvReac BLISTERS Verified 10/12/21 13:05 AND SWELLING shellfish derived AdvReac blisters, Verified 04/16/14 10:35 swelling Home Medications Medication Instructions Recorded Confirmed Last Taken Type Apap/Acetaphenamin 500 mg PO PRN 10/12/21 10/24/21 History Apple Cider Vinegar 450 mg PO DAILY 10/12/21 10/12/21 10/24/21 History Centrum [place] 3 1 dose PO DAILY 10/12/21 10/24/21 History Multi Víctor 3 1 tab PO DAILY 10/12/21 10/24/21 History Valsartan [Diovan] 80 mg PO DAILY 10/12/21 10/12/21 10/24/21 History Vitamin B12 1,000 mcg PO DAILY 10/12/21 10/12/21 10/24/21 History Vitamin D3 25 mcg PO DAILY 10/12/21 10/12/21 10/24/21 History Vitamin Super B 1 tab PO DAILY 10/12/21 10/24/21 History Ibuprofen [Motrin] 600 mg PO Q8H PRN #60 tablet 10/25/21 Unknown Rx Active Meds: Active Medications Acetaminophen (Acetaminophen 325 Mg Tab) 650 mg PO Q4H PRN PRN Reason: Pain MILD(1-3)/Fever >100.5/GARCIA Last Admin: 12/09/21 17:59 Dose: 650 mg Cyanocobalamin (Cyanocobalamin (Vit B-12) 1000 Mcg Tab) 1,000 mcg PO DAILY [facility] Last Admin: 12/10/21 11:33 Dose: 1,000 mcg Famotidine (Famotidine 20 Mg/2 Ml Inj) 20 mg IV BID [facility] Last Admin: 12/10/21 11:33 Dose: 20 mg Hydromorphone HCl (Hydromorphone 1 Mg/1 Ml Inj) 0.5 mg IV Q3H PRN PRN Reason: Pain , Severe (7-10) Sodium Chloride (Nacl 0.9% 1000 Ml) 1,000 mls @ 75 mls/hr IV DIRECT [facility] Ibuprofen (Ibuprofen 600 Mg Tab) 600 mg PO Q8H PRN PRN Reason: Pain, Mild (1-3) Morphine Sulfate (Morphine 2 Mg/1 Ml Inj) 2 mg IV Q4H PRN PRN Reason: Pain, Moderate (4-6) Last Admin: 12/10/21 11:36 Dose: 2 mg Ondansetron HCl (Ondansetron 4 Mg/2 Ml Inj) 4 mg IV Q8H PRN PRN Reason: Nausea And Vomiting Sodium Chloride (Sodium Chloride 0.9% 10 Ml Flush Syringe) 10 ml IV BID [facility] Last Admin: 12/10/21 11:33 Dose: 10 ml Sodium Chloride (Sodium Chloride 0.9% 10 Ml Flush Syringe) 10 ml IV PRN PRN PRN Reason: LINE FLUSH Valsartan (Valsartan 40 Mg Tab) 80 mg PO DAILY [facility] Last Admin: 12/10/21 11:33 Dose: 80 mg Vitamin B Complex/Vitamin C (B Complex W/Vitamin C Tab) 1 each PO DAILY [facility] Last Admin: 12/10/21 11:33 Dose: 1 each Review of Systems All systems: negative (As mentioned in the H&P) Physical Examination Vital Signs Temp Pulse Resp BP Pulse Ox 98.3 F 52 L 16 155/71 99 12/08/21 11:50 12/08/21 11:50 12/08/21 11:50 12/08/21 11:50 12/08/21 11:50 Narrative exam: On examination patient appears alert and in no acute distress Moderately obese HEENT unremarkable with Cardiovascular system S1-S2 heard no murmur rubs or gallop Respiratory system normal vascular breath sounds Abdomen unremarkable Neuro patient alert moving all 4 extremities with Extremities no edema noted Results 12/08/21 13:18 12/08/21 13:18 EKG interpretations - Telemetry EKG Rhythm: Sinus Bradycardia Assessment and Plan Impression: Atypical chest pain is since resolved. Abnormal baseline EKG with normal sinus rhythm LVH with repolarization changes Sinus bradycardia at baseline Hypertension fairly well controlled. Plan: Chest pain is resolved. Highly atypical symptoms Stress test is negative. Except for bradycardia no significant normality noted Patient can be discharged home with outpatient cardiology follow-up. I have given my card to the patient an outpatient echocardiogram will be done and patient will be monitored for further cardiac symptoms.
--- NOTE | 2021-12-10 12:20 | Discharge Summary ---
Providers - Providers Date of Admission: 12/09/21 02:43 Date of discharge: 12/10/21 Attending physician: ALESHIA STANLEY 12/10/21 11:24 Consult to Physician [CONS] Routine Comment: Consulting Provider: DARREN VALDERRAMA Physician Instructions: Reason For Exam: Chest pain/abnormal EKG/bradycardia Primary care physician: [employer] Hospitalization Reason for admission: Atypical chest pain Condition: Stable Pertinent studies: No acute abnormality noted Procedures: Stress test negative for ischemia[preliminary report by Dr. Noah Valderrama Hospital course: Chest pain for 1 day 65-year-old female with history of presents with left-sided chest pain since Sat ur which was 5 days ago. Chest pain is retrosternal in reported. No radiation. Diaphoresis. Not positional. No chest wall tenderness patient presents after [facility] a cardiac [facility] could not and came to the emergency room here. No cardiac history in the past except for hypertension. No cardiac interventions in the past Patient was admitted serial cardiac enzymes were negative however due to multiple risk factors. patient was scheduled for stress test which was negative for ischemia patient has mild bradycardia, patient is not on any AV christina blockers. Asymptomatic cardiology evaluated the patient, stress test is negative Cleared for discharge and follow-up in the office for further evaluation management if needed Patient has atypical chest pain probably secondary to gastroesophageal reflux disease Today patient is comfortable, no new complaints, vital signs stable physical examination prior to discharge is unremarkable Discharge diagnosis; --Bradycardia; asymptomatic Patient is not on any AV christina blockers Check thyroid panel, Has abnormal EKG Consult cardiology[informed Dr.R. Jerome Da Silva heart --Acute coronary syndrome Current Visit: Yes Status: Acute Chest pain work-up Serial troponins negative Patient underwent a Lexiscan stress test Pending report -- Hypertension Current Visit: Yes Status: Chronic Continue antihypertensives and adjust medications Patient is on valsartan --Dyslipidemia; Low-dose statin, Low-cholesterol diet --Hypernatremia Current Visit: Yes Status: Acute Mild Half-normal saline for now -- DVT prophylaxis Current Visit: Yes Status: Acute On anticoagulation GI prophylaxis -- Advance care planning Current Visit: Yes Status: Acute Disease education collected, care plan discussed, diagnosis discussed, prognosis discussed. Patient is full code. Patient acknowledges understanding and agreement with care plan. +30 minutes. Discussed with cardiology Dr. Noah Da Silva heart Okay to discharge and follow-up in the office for further evaluation management as needed Stable at discharge Disposition: 01 HOME / SELF CARE / HOMELESS Final Discharge Diagnosis (Prints w/discharge instructions): Asymptomatic bradycardia. Acute coronary syndrome. Atypical chest pain. Probably noncardiac chest pain due to GERD. Hypertension. Dyslipidemia. Mild hyponatremia/advised plenty oral fluids Time spent for discharge: 35 minutes Core Measure Documentation - Palliative Care Palliative Care/ Comfort Measures: Not Applicable - Core Measures Any of the following diagnoses?: none Exam - Constitutional Vitals: Temp Pulse Resp BP Pulse Ox 98.1 F 52 L 20 132/71 99 12/10/21 07:59 12/10/21 07:59 12/10/21 07:59 12/10/21 07:59 12/10/21 08:59 General appearance: Present: no acute distress, well-nourished - EENT Eyes: Present: PERRL, EOM intact - Neck Neck: Present: supple, normal ROM - Respiratory Respiratory effort: normal Respiratory: bilateral: diminished, negative: rales, rhonchi, wheezing - Cardiovascular Rhythm: regular Heart Sounds: Present: S1 & S2 - Extremities Extremities: no ischemia, No edema - Abdominal General gastrointestinal: Present: soft, non-tender, non-distended, normal bowel sounds - Integumentary Integumentary: Present: clear, warm - Musculoskeletal Musculoskeletal: strength equal bilaterally - Psychiatric Psychiatric: appropriate mood/affect, cooperative - Neurologic Neurologic: moves all extremities Plan Activity: advance as tolerated Diet: other (Cardiac diet) Additional Instructions: Follow-up private cardiology Dr. Noah Valderrama [facility] and 1 to 2 weeks as needed. He have worsening symptoms contact MD or go to the nearest emergency room as needed, Patient strongly advised to comply with medications diet and follow-up visits. Patient verbalized understanding Follow up with: PRIMARY CAREMD [Primary Care Provider] - 3-5 Days DARREN VALDERRAMA MD [Staff Physician] - 7 Days Prescriptions: Pantoprazole [Protonix TAB] 20 mg PO QDAY #30 tablet.
--- NOTE | 2021-12-10 13:39 | Treadmill Report ---
DATE OF SERVICE: 12/09/2021 MYOCARDIAL PERFUSION SCAN REPORT DATE OF PROCEDURE: 12/09/2021 FINDINGS: Homogeneous uptake of tracer noted in the rest and stress images. Comparison of the rest and stress images revealed no fixed or reversible defects, suggestive of infarct or ischemia. Gated analysis reveals normal wall motion. LVEF 70%. IMPRESSION: Normal myocardial perfusion scan. TID: [id number] RECEIPT: [id number] RR/HUS
== END 2021-12-10 13:56 | disposition home or self-care (01) | DRG 392 ==
LOC: ED 11:40 → INTOOBSV 14:47 → 4A 14:47 → OBSVTOIN 12-09 02:43 → 3A 12-09 03:06 → 4A 12-09 11:13
PROVIDERS: ADMIT Internal Medicine; ATTEND Internal Medicine
DX: K21.9 Gastro-esophageal reflux disease without esophagitis (principal); E87.0 Hyperosmolality and hypernatremia; R00.1 Bradycardia, unspecified; Z90.49 Acquired absence of other specified parts of digestive tract; G43.909 Migraine, unspecified, not intractable, without status migrainosus; Z82.49 Family history of ischemic heart disease and other diseases of the circulatory system; M19.012 Primary osteoarthritis, left shoulder; Z91.013 Allergy to seafood; Z88.3 Allergy status to other anti-infective agents
CPT/HCPCS: 36415; 71046; 78452; 80048; 80061; 84484; 85025; 93005; 93017; G0378; J3490; A9502; J2270; J2405

== ENCOUNTER 2022-05-11 07:25 | Day surgery (SDC) | payer MEDICARE, OTHER ==
[2022-05-11] MEDS ORDERED: ASPIRIN EC 325 MG TAB PO ONE (08:30)
[2022-05-11 08:40] LABS: Basophils # (Auto) 0.1 K/mm3 (0.0-0.1); Basophils % (Auto) 1.4 % (0.0-1.8); Eosinophils # (Auto) 0.1 K/mm3 (0.0-0.4); Eosinophils % (Auto) 2.2 % (0.0-4.3); Hematocrit 34.9 % (30.3-42.9); Hemoglobin 11.7 gm/dl (10.1-14.3); Lymphocytes # (Auto) 2.3 K/mm3 (1.2-5.4); Lymphocytes % (Auto) 40.9 % (13.4-35.0); Mean Corpuscular HGB Conc 33 % (30-34); Mean Corpuscular Volume 88 fl (79-97); Monocytes # (Auto) 0.4 K/mm3 (0.0-0.8); Monocytes % (Auto) 6.6 % (0.0-7.3); Platelet Count 199 K/mm3 (140-440); Red Blood Count 3.97 M/mm3 (3.65-5.03); Red Cell Distribution Width 13.5 % (13.2-15.2)
[2022-05-11] MEDS: SODIUM CHLORIDE 0.9% 500 ML 500 ML IV SCH ×2 (08:48→10:26)
[2022-05-11 08:54] LABS: INR 0.8 (0.87-1.13)
[2022-05-11 08:56] LABS: Calcium 9.8 mg/dL (8.4-10.2)
[2022-05-11] MEDS: fentaNYL 100 MCG/2 ML INJ ONE ×2 (09:55→10:33)
[2022-05-11] MEDS: MIDAZOLAM 2 MG/2 ML INJ ONE ×2 (09:55→10:32)
[2022-05-11] MEDS: HEPARIN 10,000 UNITS/10 ML VIAL ONE ×2 (09:55→10:40)
[2022-05-11] MEDS: LIDOCAINE (1%) 10 MG/1 ML VIAL 20 ML MDV ONE ×2 (09:55→10:38)
[2022-05-11] MEDS: VERAPAMIL 5 MG/2 ML INJ ONE ×2 (09:56→10:40)
[2022-05-11] MEDS ORDERED: HYDROCORTISONE SOD SUCC 100 MG/2 ML VIAL IV ONE (10:00)
[2022-05-11] MEDS ORDERED: diphenhydrAMINE 50 MG/ML VIAL IV ONE (10:00)
--- NOTE | 2022-05-11 10:24 | Electrocardiograph Report ---
[facility] Test Date: 2022-05-11 Test Time: 08:29:08 Pat Name: ZULEYKA THAKKAR Department: Room: Gender: F Instructor Of Sociology: GLORIA : 1955 Requested By: ERNIE CARLOS Order Number: [id number] Reading MD: Meliton Alvarado Measurements Intervals [place] Rate: 50 P: 54 [place]: 154 QRS: 34 QRSD: 92 T: 145 QT: 534 QTc: 486 Interpretive Statements Sinus rhythm Abnrm T, probable ischemia, anterolateral lds Compared to ECG 12/08/2021 11:59:46 Sinus bradycardia no longer present T-wave abnormality no longer present Possible ischemia still present Electronically Signed On 05-11-2022 10:23:44 EDT by Meliton Alvarado
[2022-05-11] MEDS: HEPARIN/NS 5000 UNIT/500ML 1,000 ML IR ONE ×2 (10:26→10:41)
[2022-05-11] MEDS: NITROGLYCERIN SYRINGE 3 ML ONE ×2 (10:26→10:40)
--- NOTE | 2022-05-11 11:37 | Cardiac Catherization Report ---
DATE OF SERVICE: 05/11/2022 CARDIAC CATHETERIZATION REPORT REASON FOR PROCEDURE: Chest pain and abnormal thallium stress test. PROCEDURES: 1. Left heart catheterization. 2. Selective left and right coronary angiography. 3. Left ventricular angiography. 4. Sedation time, start 10:33, end 10:52. DESCRIPTION OF PROCEDURE: The patient was prepped and draped in a sterile fashion after informed consent. The right radial cath site was prepped and draped after negative Amrio's test. The right radial artery was entered using Seldinger technique followed by placement of a 6-Russian hydrophilic sheath. Routine radial cocktail was administered via the sheath. Selective left and right coronary angiography was performed using #3.5 left Cnoi and a #4 right Coni. The pigtail catheter was used for left ventricular angiography. The catheters were then removed, sheath removed, hemostasis achieved using a TR band. The patient was returned to the postprocedure unit in stable condition. There were no complications. HEMODYNAMICS: Left ventricular end diastolic pressure was 28, following coronary angiography. Ascending aortic pressure was 160/73. There was no significant pressure gradient on pullback across the aortic valve. CORONARY ANGIOGRAPHY: Left main coronary artery was angiographically normal. The left anterior descending artery and its diagonal branches contain minimal irregularities. The circumflex artery and its obtuse marginal branches were angiographically normal. The right coronary artery was dominant and also contained minimal irregularities. There was normal left ventricular systolic function with ejection fraction 60%. CONCLUSION: 1. Minimal irregularities as described above, otherwise angiographically normal coronary arteries. 2. Normal left ventricular systolic function, ejection fraction 60%. RECOMMENDATIONS: Risk factor modification. Consider noncardiac etiologies of chest pain if clinically indicated. TID: [id number] RECEIPT: [id number] JAKE
[2022-05-11] MEDS ORDERED: traMADol 50 MG TAB PO PRN (12:31)
--- NOTE | 2022-05-11 12:35 | Discharge Summary ---
Short Stay Discharge Plan Activity: advance as tolerated Weight Bearing Status: Full Weight Bearing Diet: low fat, low cholesterol, low salt Wound: keep clean and dry Special Instructions: no heavy lifting (3 days) Follow up with: [facility] [Primary Care Provider] - 7 Days SHAWN MARIA MD [Staff Physician] - 7 Days
[2022-05-11] MEDS ORDERED: SODIUM CHLORIDE 0.9% 1000 ML 1,000 ML IV SCH (12:45)
[2022-05-11 16:39] VITALS: BP 133/65
== END 2022-05-11 15:20 | disposition home or self-care (01) ==
LOC: CATHLABREC 07:25
PROVIDERS: ATTEND Internal Medicine Cardiovascular Disease
DX: R07.89 Other chest pain (principal); R94.39 Abnormal result of other cardiovascular function study; I10 Essential (primary) hypertension; G43.909 Migraine, unspecified, not intractable, without status migrainosus; E78.00 Pure hypercholesterolemia, unspecified; K21.9 Gastro-esophageal reflux disease without esophagitis; M19.90 Unspecified osteoarthritis, unspecified site; Z90.49 Acquired absence of other specified parts of digestive tract; Z98.51 Tubal ligation status; Z79.899 Other long term (current) drug therapy; Z91.041 Radiographic dye allergy status; Z91.013 Allergy to seafood; Z83.3 Family history of diabetes mellitus; Z98.890 Other specified postprocedural states; Z86.73 Personal history of transient ischemic attack (TIA), and cerebral infarction without residual deficits; Z86.2 Personal history of diseases of the blood and blood-forming organs and certain disorders involving the immune mechanism
CPT/HCPCS: 36415; 80048; 85025; 85610; 85730; 93005; 93458; 99156; C1894; J1200; J1644; J1720; J1815; J2250; J3010; J7040; 96374; 96375; Q9967